=== PATIENT | male | born 1990 | race Caucasian/White ===

== ENCOUNTER → 2018-10-10 12:09 | Outpatient (CLI) | payer MEDICAID, SELFPAY ==
--- NOTE | 2018-10-10 12:27 | MRI_ITS ---
STUDY: MRI RIGHT KNEE REASON FOR EXAM: Right knee pain, injury playing basketball. TECHNIQUE: Standardized fat and water weighted pulse sequences were obtained in all 3 orthogonal planes. COMPARISON: None. FINDINGS: Normal medial meniscus. Normal hyaline cartilage of the medial femorotibial compartment. Normal medial femoral condyle and tibial plateau. There is a sprain of the superficial fibers of the medial collateral ligament (T2 coronal image 16). Normal distal semimembranosus, gracilis and semitendinosus tendons. Normal lateral meniscus. There is a small focal chondral defect of the anterior weightbearing portion of the lateral femoral condyle (T2 sagittal image 6) measuring 0.35 cm in AP dimension. There is a bone contusion of the peripheral aspect of the lateral femoral condyle (T2 axial images 11-17). Normal proximal tibiofibular articulation. Normal lateral collateral (fibular) ligament. Normal popliteus tendon. Normal biceps femoris tendon. Normal anterior cruciate ligament (ACL). Normal posterior cruciate ligament (PCL). The patellofemoral articulation is congruent at the time of this examination. Normal hyaline cartilage of the patellofemoral compartment. There is a tear of the medial patellofemoral ligament at the femoral attachment (T2 axial image 11). Normal visualized quadriceps tendon. Normal patellar tendon. Normal Hoffa's fat pad. There is a [id number] sized joint effusion. There is a thin medial patellar plica. There is a small popliteal cyst with mild extravasation of fluid (T2 sagittal images 19-21). There is a small bone contusion of the medial aspect of the patella (T2 coronal image 29). MRI/Lower Ext Joint Only (Routine) IMPRESSION: Transient patellar dislocation with bone contusions of the lateral femoral condyle and medial patella, and tear of the medial patellofemoral ligament. Small focal chondral defect of the lateral femoral condyle. Medial collateral ligament sprain. Joint effusion. Small popliteal cyst with mild extravasation of fluid. Electronically Signed: Ismael Fredercik MD at 14:52 EDT Tel , Service support ,
== END ==
PROVIDERS: Family Provider Family Medicine; PCP Family Medicine; Referring Provider Family Medicine; Visit Provider Family Medicine
DX: S83.094A Other dislocation of right patella, initial encounter (principal); S86.811A Strain of other muscle(s) and tendon(s) at lower leg level, right leg, initial encounter; S80.01XA Contusion of right knee, initial encounter; S83.411A Sprain of medial collateral ligament of right knee, initial encounter; X58.XXXA Exposure to other specified factors, initial encounter; Y93.67 Activity, basketball; M71.21 Synovial cyst of popliteal space [Baker], right knee
CPT/HCPCS: 73721